=== PATIENT | female | born 1945 | race Caucasian/White ===

== ENCOUNTER 2017-06-20 15:01 | Emergency (ER) | payer MEDICARE, OTHER ==
[~2017-06-20] VITALS: Ht 160 cm; Wt 68.0 kg
--- NOTE | 2017-06-20 15:24 | PHYS DOC ---
Adult General Chief Complaint Chief Complaint: LACERATION/AVULSION HPI HPI Patient is a 72-year-old female who presents with a laceration to the right thumb. The patient was using a mandolin to peel potatoes and was not using the guard, she sliced her right thumb on the mandolin. She is right-handed. No other injury. Review of Systems Review of Systems Integument: Denies other skin injury or laceration Allergies Allergies Allergies Coded Allergies Type Severity Reaction Last Updated Verified No Known Drug Allergies 06/20/17 No Physical Exam Physical Exam Constitutional: Well developed, well nourished, no acute distress, non-toxic appearance. Alert, ambulatory, mentating normally. HENT: Normocephalic, atraumatic, bilateral external ears normal, nose normal. [] Eyes: conjunctiva normal, no discharge. [] Neck: Normal range of motion, no stridor. [] Skin: Warm, dry, no erythema, no rash. [] Extremities: No tenderness, no cyanosis, no clubbing, ROM intact, no edema. Right thumb: There is a narrow area of full thickness skin avulsion on the radial/palmar aspect of the thumb approximately 3 cm length, consistent with history of injury by mandolin. The full-thickness area is maybe 2-3 mm in width. There is no injury to deeper structures. Neurologic: Alert and oriented X 3, normal motor function, no focal deficits noted. [] EKG EKG [] Radiology/Procedures Radiology/Procedures [] Course & Med Decision Making Course & Med Decision Making Pertinent Labs and Imaging studies reviewed. (See chart for details) 72-year-old female who avulsed a long, narrow area of skin off of her right thumb. It is narrow enough that I believe it will likely heal without incident. The injury was bandaged by ED nursing staff. See instructions for plan. [] Dragon Disclaimer Dragon Disclaimer This chart was dictated in whole or in part using Voice Recognition software in a busy, high-work load, and often noisy Emergency Department environment. It may contain unintended and wholly unrecognized errors or omissions. Departure Departure: Impression: Primary Impression: Laceration of right thumb Disposition: 01 HOME, SELF-CARE Condition: STABLE Referrals: TARAN COLON MD (PCP) Patient Instructions: Laceration Care, Adult Additional Instructions: Leave the dressing on and keep it dry for 48 hours. After 48 hours, you may remove it carefully and redress with ointment such as Vaseline or antibiotic ointment, then non-adherent dressing, then either a tubular finger dressing or a wrap of gauze or Band-Aid. You will need to keep it dressed for 2 or 3 weeks as the skin heals from the inside. After 1-1-1/2 weeks, if it does not appear to be starting to heal, recheck with your doctor. Tylenol or ibuprofen if needed for pain. Keep it dry while it is healing. LAST SHARIF MD Jun 20, 2017 15:24
[2017-06-20 15:45] VITALS: BP 135/80
== END 2017-06-20 15:47 | disposition home or self-care (01) ==
LOC: ER 15:01
DX: S61.011A Laceration without foreign body of right thumb without damage to nail, initial encounter (principal); W45.8XXA Other foreign body or object entering through skin, initial encounter; Y93.89 Activity, other specified; Y99.8 Other external cause status; Y92.89 Other specified places as the place of occurrence of the external cause
CPT/HCPCS: 99283

== ENCOUNTER → 2018-08-09 | Outpatient (CLI) | payer MEDICARE, OTHER ==
--- NOTE | 2018-08-09 11:07 | RAD ---
Bone densitometry 08/09/2018 9:50 AM Indication: post menopausal Comparison Study: DEXA scan August 31, 2016. Discussion: Bone Densitometry was performed with dual photon absorption of the lumbar spine and left proximal femur. Lumbar Spine: Bone average density is 1.298g/cm2 for L1-L4. T-Score is 1.0 (prior T score 1.0). Left femoral neck: Bone average density is 0.707/cm2. T-Score is -2.4. (Prior T score -2.5) IMPRESSION: Osteopenia of the left femoral neck. On today's exam bone mineral density measures just above osteoporotic range and is grossly similar to comparison study. Note: Definitions established by the World Health Organization: Normal: T-score is -1.0 or above. Osteopenia: T-score is between -1.0 and -2.5. Osteoporosis: T-score is -2.5 or below. Electronically signed by: Ash Rivera MD (08/09/2018 11:04 AM) [id number]
== END | disposition home or self-care (01) ==
LOC: DXRAD 09:39
PROVIDERS: ATTEND Specialist
DX: M85.852 Other specified disorders of bone density and structure, left thigh (principal); Z78.0 Asymptomatic menopausal state; Z87.891 Personal history of nicotine dependence
CPT/HCPCS: 77080